=== PATIENT | male | born 1955 | race Caucasian/White ===

== ENCOUNTER 2018-07-16 20:08 | Observation (INO) | payer MEDICARE, MEDICAID ==
[~2018-07-16] VITALS: Ht 190.5 cm; Wt 106.9 kg
[2018-07-16 21:43] LABS: BASOPHILS # (AUTO) 0.07 x10^3/uL (0-0.1); BASOPHILS % (AUTO) 1 % (0-1); EOSINOPHILS # (AUTO) 0.18 x10^3/uL (0-0.4); EOSINOPHILS % (AUTO) 3 % (1-7); LYMPHOCYTES # (AUTO) 2.43 x10^3/uL (1-3.4); LYMPHOCYTES % (AUTO) 40 % (22-44); MD NO; MEAN CORPUSCULAR HGB CONC 33.9 g/dL (33.2-36.2); MEAN CORPUSCULAR VOLUME 97.4 fL (81-97); MEAN PLATELET VOLUME 7.3 fL (7.4-10.4); MONOCYTES # (AUTO) 0.45 x10^3/uL (0.2-0.8); MONOCYTES % (AUTO) 7 % (2-9); NEUTROPHILS % (AUTO) 49 % (42-75); PLATELET COUNT 331 x10^3/uL (130-400); RED BLOOD COUNT 4.66 x10^6/uL (4.38-5.82); RED CELL DISTRIBUTION WIDTH 16.4 % (9.4-14.8)
[2018-07-16 21:55] LABS: ALANINE AMINOTRANSFERASE 30 U/L (12-78); ALBUMIN 3.2 g/dL (3.4-5.0); ANION GAP 6 mmol/L (5-15); CALCIUM 7.7 mg/dL (8.5-10.1); CHLORIDE 110 mmol/L (98-107)
[2018-07-16 21:56] LABS: SALICYLATE LEVEL < 1.7 mg/dL (2.8-20.0)
[2018-07-16 21:57] LABS: ALKALINE PHOSPHATASE 76 U/L (45-117); BILIRUBIN,TOTAL 0.2 mg/dL (0.2-1.0); CREATININE 0.74 mg/dL (0.7-1.3); TOTAL PROTEIN 6.4 g/dL (6.4-8.2)
[2018-07-16 22:03] LABS: ACETAMINOPHEN < 2 mcg/mL (10-30)
[2018-07-17 05:38] LABS: AMPHETAMINE SCREEN, URINE Negative (Negative); BARBITURATE SCREEN, URINE Negative (Negative); BENZODIAZEPINE SCREEN, URINE Negative (Negative); CANNABINOID SCREEN, URINE Negative (Negative); COCAINE SCREEN, URINE Negative (Negative); METHADONE SCREEN, URINE Negative (Negative); OPIATE SCREEN, URINE Negative (Negative)
[2018-07-17] MEDS ORDERED: FOLIC ACID 1 MG TABLET PO ONE (09:00)
[2018-07-17] MEDS ORDERED: LORazepam 2 MG/ML, 1ML IVPush ONE (11:00)
[2018-07-17] MEDS ORDERED: LORazepam 2 MG/ML, 1ML IV PRN ×5 (11:30)
[2018-07-17] MEDS ORDERED: ONDANSETRON 2MG/ML, 2ML IVPush PRN (11:30)
[2018-07-17] MEDS ORDERED: ONDANSETRON ODT 4 MG PO PRN (11:30)
[2018-07-17] MEDS ORDERED: LORazepam 0.5MG TABLET PO PRN (11:30)
[2018-07-17] MEDS ORDERED: LORazepam 1MG TABLET PO PRN ×4 (11:30)
[2018-07-17] MEDS ORDERED: ACETAMINOPHEN 325 MG TABLET PO PRN (11:30)
[2018-07-17] MEDS ORDERED: KETOROLAC 30 MG/1 ML IV PRN (11:30)
[2018-07-17] MEDS: SENNA/DOCUSATE TABLET PO SCH (11:30)
[2018-07-17] MEDS ORDERED: THIAMINE 200 MG in DEXTROSE 5% 50 ML IVPB ONE (11:30)
[2018-07-17] MEDS ORDERED: LORazepam 1MG TABLET ONE (11:47)
[2018-07-17] MEDS: MULTIVITAMINS/MINERALS TABLET PO SCH (14:14)
[2018-07-17] MEDS ORDERED: BUPR-86 PO (16:18)
[2018-07-17 16:19] VITALS: BP 122/78
[2018-07-17 19:20] VITALS: BP 111/75
[2018-07-17] MEDS ORDERED: DIPHENHYDRAMINE 50 MG CAPSULE PO PRN (23:00)
[2018-07-18 02:31] VITALS: BP 101/64
[2018-07-18] MEDS ORDERED: ASPIRIN 325 MG TABLET PO SCH (06:00)
[2018-07-18 07:12] VITALS: BP 120/78
[2018-07-18] MEDS: SENNA/DOCUSATE TABLET PO SCH (08:41)
[2018-07-18] MEDS: MULTIVITAMINS/MINERALS TABLET PO SCH (08:41)
[2018-07-18] MEDS ORDERED: BUPROPION SR 150 MG TABLET PO SCH (09:00)
[2018-07-18] MEDS ORDERED: BUPR150T73 PO (12:17)
[2018-07-18] MEDS ORDERED: HYDR25TA11 PO (12:17)
[2018-07-18] MEDS ORDERED: MULT-484 PO (12:17)
[2018-07-18] MEDS ORDERED: TRAZ-136 PO (12:17)
[2018-07-18] MEDS ORDERED: ASPI325T17 PO (12:17)
[2018-07-18] MEDS ORDERED: ACET325T14 PO (12:17)
== END 2018-07-18 13:47 ==
LOC: ED 07-17 08:49 → EDIP 07-17 10:52 → 4WST 07-17 15:44
PROVIDERS: ADMIT Hospitalist; ATTEND Hospitalist
DX: R45.851 Suicidal ideations (principal); F33.2 Major depressive disorder, recurrent severe without psychotic features; F10.229 Alcohol dependence with intoxication, unspecified; F41.9 Anxiety disorder, unspecified; Z59.0 Homelessness; Z91.5 Personal history of self-harm; I48.91 Unspecified atrial fibrillation
CPT/HCPCS: 36415; 80053; 80307; 80329; 85025; 93005; 96365; 96375; 99285; G0378; J2060; J3411; Q0177; G0480

== ENCOUNTER 2018-07-18 12:30 | Inpatient (IN) | payer MEDICARE, MEDICAID ==
[~2018-07-18] VITALS: Ht 190.5 cm; Wt 105.5 kg
[~2018-07-18 12:30] MED LIST: ACET325T14 PO; ASPI325T17 PO; BUPR-86 PO; BUPR150T73 PO; HYDR25TA11 PO; MULT-484 PO; TRAZ-136 PO
[2018-07-18] MEDS ORDERED: DOCUSATE 100 MG CAPSULE PO PRN (14:30)
[2018-07-18] MEDS ORDERED: DIPHENHYDRAMINE 50 MG CAPSULE PO PRN (14:30)
[2018-07-18] MEDS ORDERED: ONDANSETRON ODT 4 MG PO PRN (14:30)
[2018-07-18] MEDS ORDERED: BISACODYL 10 MG SUPP PR PRN (14:30)
[2018-07-18] MEDS ORDERED: ACETAMINOPHEN 325 MG TABLET PO PRN (14:30)
[2018-07-18] MEDS ORDERED: POLYETHYLENE GLYCOL 17 GM PACKET PO PRN (14:30)
[2018-07-18] MEDS ORDERED: HYDROXYZINE PAMOATE 50MG CAP PO PRN (15:00)
[2018-07-18] MEDS ORDERED: PLEASE ENTER HEIGHT AND WEIGHT MC SCH (15:00)
[2018-07-18] MEDS: LORazepam 1MG TABLET PO PRN (15:12)
[2018-07-18 16:19] VITALS: BP 143/97
[2018-07-18 19:37] VITALS: BP 100/60
[2018-07-18 19:47] LABS: MICROSCOPIC NOT IND
[2018-07-18 19:52] LABS: CULTURE INDICATED? NO
[2018-07-18] MEDS ORDERED: TRAZODONE 100MG TABLET PO ONE (21:00)
[2018-07-19 06:29] LABS: CHOL/HDL RATIO 2.2; FOLATE LEVEL 15.8 ng/mL (3.1-17.5); FREE T4 (FREE THYROXINE) 0.93 ng/dL (0.76-1.46); LDL/HDL RATIO 0.9 (0.5-3.0); THYROID STIMULATING HORMONE 0.53 mIU/L (0.358-3.740)
[2018-07-19 08:07] VITALS: BP 105/70
[2018-07-19] MEDS: ASPIRIN 81 MG TABLET EC PO SCH (08:28)
[2018-07-19] MEDS: LORazepam 1MG TABLET PO PRN ×2 (08:28→21:05)
[2018-07-19] MEDS: FOLIC ACID 1 MG TABLET PO SCH (08:28)
[2018-07-19] MEDS: THIAMINE 100MG TABLET PO SCH (08:28)
[2018-07-19] MEDS: MULTIVITAMINS WITH IRON TABLET PO SCH (08:28)
[2018-07-19] MEDS: BUPROPION SR 150 MG TABLET PO SCH (08:28)
[2018-07-19 19:52] VITALS: BP 102/70
[2018-07-19] MEDS ORDERED: DOXEPIN 25 MG CAPSULE PO SCH (21:00)
[2018-07-20 07:55] VITALS: BP 124/85
[2018-07-20] MEDS: FOLIC ACID 1 MG TABLET PO SCH (08:49)
[2018-07-20] MEDS: THIAMINE 100MG TABLET PO SCH (08:49)
[2018-07-20] MEDS: LORazepam 1MG TABLET PO PRN (08:49)
[2018-07-20] MEDS: BUPROPION SR 150 MG TABLET PO SCH (08:49)
[2018-07-20] MEDS: ASPIRIN 81 MG TABLET EC PO SCH (08:50)
[2018-07-20] MEDS: MULTIVITAMINS WITH IRON TABLET PO SCH (08:50)
== END 2018-07-20 14:30 | disposition home or self-care (01) | DRG 885 ==
LOC: 3E 13:53
PROVIDERS: ADMIT Psychiatry & Neurology Psychosomatic Medicine; ATTEND Psychiatry & Neurology Psychosomatic Medicine
DX: F33.2 Major depressive disorder, recurrent severe without psychotic features (principal); R45.851 Suicidal ideations; F10.129 Alcohol abuse with intoxication, unspecified; I48.0 Paroxysmal atrial fibrillation; F41.9 Anxiety disorder, unspecified; G47.00 Insomnia, unspecified; Z91.5 Personal history of self-harm; Z82.0 Family history of epilepsy and other diseases of the nervous system; Y90.9 Presence of alcohol in blood, level not specified
CPT/HCPCS: 36415; 80061; 81003; 82140; 82607; 82746; 84439; 84443; 86592; 92523-GN

== ENCOUNTER 2018-10-20 09:41 | Emergency (ER) | payer MEDICARE, MEDICAID ==
[~2018-10-20] VITALS: Ht 188 cm; Wt 113.4 kg
[~2018-10-20 09:41] MED LIST changes: -TRAZ-136 PO; +TRAZ50TA66 PO
[2018-10-20 09:43] VITALS: BP 103/69
--- NOTE | 2018-10-20 09:59 | NUR ---
Patient safe in gurney, shutters lowered, personal belongings bagged and documented, ANITA Clark at bedside now for assessment. Patient states he "just don't want to feel like this anymore" he states he has had previous SA via "leaving the car running in the garage, and another time taking a bunch of pils." Patient states that he does not own a gun, has considered buying one now for a suicide attempt. He states he had "about 3 beers this morning to try to help me calm down, but that didn't work." At this time patient's urine sample sent to lab, Breathalyzer by [facility]. patient denies additional needs, blankets provided, NADN, safety maintained.
[2018-10-20 10:18] LABS: BASOPHILS # (AUTO) 0.07 x10^3/uL (0-0.1); BASOPHILS % (AUTO) 1 % (0-1); EOSINOPHILS # (AUTO) 0.04 x10^3/uL (0-0.4); EOSINOPHILS % (AUTO) 1 % (1-7); LYMPHOCYTES # (AUTO) 1.62 x10^3/uL (1-3.4); LYMPHOCYTES % (AUTO) 18 % (22-44); MD NO; MEAN CORPUSCULAR HEMOGLOBIN 32.7 pg (27.5-34.5); MEAN CORPUSCULAR HGB CONC 34.3 g/dL (33.2-36.2); MEAN CORPUSCULAR VOLUME 95.3 fL (81-97); MEAN PLATELET VOLUME 7.8 fL (7.4-10.4); MONOCYTES # (AUTO) 0.52 x10^3/uL (0.2-0.8); MONOCYTES % (AUTO) 6 % (2-9); NEUTROPHILS # (AUTO) 6.52 x10^3/uL (1.8-6.8); NEUTROPHILS % (AUTO) 74 % (42-75); PLATELET COUNT 317 x10^3/uL (130-400); RED BLOOD COUNT 4.76 x10^6/uL (4.38-5.82); RED CELL DISTRIBUTION WIDTH 14.6 % (9.4-14.8)
[2018-10-20 10:36] LABS: ALBUMIN 3.5 g/dL (3.4-5.0); CALCIUM 7.9 mg/dL (8.5-10.1); CHLORIDE 103 mmol/L (98-107)
[2018-10-20 10:40] LABS: ACETAMINOPHEN < 2 mcg/mL (10-30); ANION GAP 10 mmol/L (5-15); CREATININE 0.89 mg/dL (0.7-1.3); SALICYLATE LEVEL < 1.7 mg/dL (2.8-20.0)
[2018-10-20 10:45] LABS: AMPHETAMINE SCREEN, URINE Negative (Negative); BARBITURATE SCREEN, URINE Negative (Negative); BENZODIAZEPINE SCREEN, URINE Negative (Negative); CANNABINOID SCREEN, URINE Negative (Negative); COCAINE SCREEN, URINE Negative (Negative); METHADONE SCREEN, URINE Negative (Negative); OPIATE SCREEN, URINE Negative (Negative)
[2018-10-20] MEDS ORDERED: LORazepam 1MG TABLET ONE (13:32)
--- NOTE | 2018-10-20 13:53 | NUR ---
patient has requested "something to help me calm down" 1 mg PO ativan ordered by Khadra and administered by this RN. Report given to Floor RN, patient updated of transfer plan and RTG. Safety maintained, sitter outside room continuously
--- NOTE | 2018-10-20 13:53 | NUR ---
Called Luis for SBAR report, pt will transported by ER staff to unit room 262
[2018-10-20] MEDS ORDERED: LORazepam 1MG TABLET PO ONE (14:00)
--- NOTE | 2018-10-20 16:20 | NUR ---
TASK RN: TO BE ADMIT TO 3E. REPORT TO CYNDI ASKEW
== END 2018-10-20 16:39 ==
LOC: ED 11:52
DX: F33.0 Major depressive disorder, recurrent, mild (principal); F10.120 Alcohol abuse with intoxication, uncomplicated; Z72.9 Problem related to lifestyle, unspecified
CPT/HCPCS: 36415; 80048; 80307; 80329; 82040; 85025; 99285; G0480

== ENCOUNTER 2019-04-28 09:14 | Inpatient (IN) | payer MEDICARE, MEDICAID ==
[~2019-04-28] VITALS: Ht 190.5 cm; Wt 113.3 kg
[2019-05-05 07:08] VITALS: BP 95/60
== END 2019-05-05 09:53 | disposition home or self-care (01) | DRG 885 ==
LOC: 3E 09:14
PROVIDERS: ADMIT Psychiatry & Neurology Psychosomatic Medicine; ATTEND Psychiatry & Neurology Psychosomatic Medicine
DX: F33.2 Major depressive disorder, recurrent severe without psychotic features (principal); R45.851 Suicidal ideations; I10 Essential (primary) hypertension; I25.10 Atherosclerotic heart disease of native coronary artery without angina pectoris; G47.00 Insomnia, unspecified; F10.21 Alcohol dependence, in remission; F41.9 Anxiety disorder, unspecified; Z79.899 Other long term (current) drug therapy
CPT/HCPCS: 36415; 71045; 80048; 80061; 81001; 82140; 82607; 84436; 84443; 85025; 85651; 93005

== ENCOUNTER 2019-05-19 06:04 | Emergency (ER) | payer MEDICARE, MEDICAID ==
[~2019-05-19] VITALS: Ht 190.5 cm; Wt 115.1 kg
[2019-05-19 06:35] VITALS: BP 105/81
== END 2019-05-19 13:35 | disposition home or self-care (01) ==
LOC: ED 07:28
DX: F32.1 Major depressive disorder, single episode, moderate (principal); F10.220 Alcohol dependence with intoxication, uncomplicated; Z72.9 Problem related to lifestyle, unspecified; Y90.9 Presence of alcohol in blood, level not specified
CPT/HCPCS: 36415; 80048; 80307; 82040; 85025; 99284; Q0177; 99283

== ENCOUNTER 2020-01-05 11:32 | Emergency (ER) | payer MEDICARE, MEDICAID ==
[~2020-01-05] VITALS: Ht 190.5 cm; Wt 121.4 kg
[~2020-01-05 11:32] MED LIST changes: +AMLO-150 PO; +CARV12.5 PO; +DOXE100C PO; +DULO30CA2 PO; +FLUO20CA23 PO; +HYDR-826 PO; -HYDR25TA11 PO; +LOSA100T14 PO; +MULT1TAB60 PO; +QUET25TA7 PO; +TRAZ-175 PO
[2020-01-05] MEDS ORDERED: HYDROcodone/APAP 5/325 TABLET ONE (11:59)
[2020-01-05] MEDS ORDERED: METHOCARBAMOL 750 MG TABLET ONE (11:59)
[2020-01-05] MEDS ORDERED: METHOCARBAMOL 750 MG TABLET PO ONE (12:00)
[2020-01-05] MEDS ORDERED: HYDROcodone/APAP 5/325 TABLET PO ONE (12:00)
[2020-01-05 12:04] VITALS: BP 116/72
--- NOTE | 2020-01-05 12:05 | NUR ---
PT KATALINA TV. MEDICATED PER MAR
--- NOTE | 2020-01-05 13:07 | NUR ---
PT TO CT AT THIS TIME
== END 2020-01-05 13:39 | disposition home or self-care (01) ==
LOC: ED 11:55
DX: S39.012A Strain of muscle, fascia and tendon of lower back, initial encounter (principal); M47.816 Spondylosis without myelopathy or radiculopathy, lumbar region; X58.XXXA Exposure to other specified factors, initial encounter; Y93.89 Activity, other specified; Y92.89 Other specified places as the place of occurrence of the external cause; Y99.8 Other external cause status
CPT/HCPCS: 72131; 99284

== ENCOUNTER 2020-01-16 08:05 | Emergency (ER) | payer MEDICARE, MEDICAID ==
[~2020-01-16] VITALS: Ht 188 cm; Wt 86.0 kg
[2020-01-16 08:10] VITALS: BP 123/80
--- NOTE | 2020-01-16 08:30 | NUR ---
PT VALENTIN HAN, PT WITH SI, STATES HE PLANS TO SHOOT HIMSELF IN THE HEAD WITH A GUN. PER EMS REPORT PT DOES NOT HAVE ACCESS TO GUN AT THIS TIME, ALTHOUGH PT STATES HE DOES. PT WITH HX OF DEPRESSION AND PRIOR SA/SI PER EMS AND PT REPORT. PT TO SECURE RM AT THIS TIME, ALL BELONGINGS REMOVED, PLACED IN 2 PT BELONGINGS BAGS AND TO SECURE LOCKER LABELED. PT PROVIDED WITH BLANKET. AWAITING ERMD EVAL
[2020-01-16 09:03] LABS: BASOPHILS # (AUTO) 0.04 x10^3/uL (0-0.1); BASOPHILS % (AUTO) 1 % (0-1); EOSINOPHILS # (AUTO) 0.44 x10^3/uL (0-0.4); EOSINOPHILS % (AUTO) 5 % (1-7); LYMPHOCYTES # (AUTO) 1.83 x10^3/uL (1-3.4); LYMPHOCYTES % (AUTO) 22 % (22-44); MD NO; MEAN CORPUSCULAR HEMOGLOBIN 32.2 pg (27.5-34.5); MEAN CORPUSCULAR VOLUME 94.7 fL (81-97); MEAN PLATELET VOLUME 7.5 fL (7.4-10.4); MONOCYTES % (AUTO) 10 % (2-9); NEUTROPHILS # (AUTO) 5.09 x10^3/uL (1.8-6.8); NEUTROPHILS % (AUTO) 62 % (42-75); PLATELET COUNT 351 x10^3/uL (130-400); RED BLOOD COUNT 4.86 x10^6/uL (4.38-5.82)
[2020-01-16 09:12] LABS: ALANINE AMINOTRANSFERASE 44 U/L (12-78); ALBUMIN 3.3 g/dL (3.4-5.0); ANION GAP 7 mmol/L (5-15); CALCIUM 8.4 mg/dL (8.5-10.1); CHLORIDE 107 mmol/L (98-107); CREATININE 0.75 mg/dL (0.7-1.3)
[2020-01-16 09:14] LABS: ALKALINE PHOSPHATASE 99 U/L (45-117); BILIRUBIN,TOTAL 0.2 mg/dL (0.2-1.0); TOTAL PROTEIN 7.2 g/dL (6.4-8.2)
[2020-01-16 09:16] LABS: SALICYLATE LEVEL < 1.7 mg/dL (2.8-20.0)
--- NOTE | 2020-01-16 09:39 | NUR ---
UDS COLLECTED AND SENT TO LAB, MEAL TRAY ORDERED FOR PT. NO OTHER NEEDS AT THIS TIME
[2020-01-16 10:33] LABS: AMPHETAMINE SCREEN, URINE Negative (Negative); BARBITURATE SCREEN, URINE Negative (Negative); BENZODIAZEPINE SCREEN, URINE Negative (Negative); CANNABINOID SCREEN, URINE Negative (Negative); COCAINE SCREEN, URINE Negative (Negative); METHADONE SCREEN, URINE Negative (Negative); OPIATE SCREEN, URINE Negative (Negative)
--- NOTE | 2020-01-16 13:10 | NUR ---
REPORT RECEIEVED FROM ADAM HANNA. PT RESTING IN BED, SITTER AT BEDSIDE. PT STATES STATES HE IS FEELING ANXIOUS, WILL LET ERMD KNOW. NEEDS ADDRESSED, CONT TO MONITOR.
--- NOTE | 2020-01-16 14:17 | NUR ---
PROCUREMENT PROFESSIONAL AT BEDSIDE FOR ASSESSMENT.
--- NOTE | 2020-01-16 15:24 | NUR ---
TASK RN, FIRST CONTACT WITH PT. Patient given discharge instructions and they have confirmed that they understand the instructions. Patient ambulatory with steady gait. Pt left with d/c paperwork, Rx, and all personal belongings bags (2 of 2). Pt declined taxi voucher or bus pass. No needs expressed.
== END 2020-01-16 15:26 | disposition home or self-care (01) ==
LOC: ED 08:13
DX: R45.851 Suicidal ideations (principal); F32.9 Major depressive disorder, single episode, unspecified; F10.129 Alcohol abuse with intoxication, unspecified; Y90.0 Blood alcohol level of less than 20 mg/100 ml
CPT/HCPCS: 36415; 80053; 80307; 85025; 99284

== ENCOUNTER 2020-04-18 12:04 | Inpatient (IN) | payer MEDICARE, MEDICAID ==
[~2020-04-18] VITALS: Ht 190.5 cm; Wt 112.6 kg
[~2020-04-18 12:04] MED LIST changes: +MULT-449 PO; -MULT1TAB60 PO
[2020-04-18 13:15] VITALS: BP 107/73
[2020-04-18 14:37] VITALS: BP 107/73
[2020-04-18] MEDS ORDERED: ONDANSETRON 2MG/ML, 2ML IVPush PRN (16:00)
[2020-04-18] MEDS ORDERED: BISACODYL 10 MG SUPP PR PRN (16:00)
[2020-04-18] MEDS ORDERED: ONDANSETRON ODT 4 MG PO PRN (16:00)
[2020-04-18] MEDS ORDERED: GABAPENTIN 300 MG CAPSULE PO PRN (16:00)
[2020-04-18] MEDS ORDERED: DOCUSATE 100 MG CAPSULE PO PRN (16:00)
[2020-04-18] MEDS ORDERED: ACETAMINOPHEN 325 MG TABLET PO PRN (16:00)
[2020-04-18] MEDS ORDERED: IBUPROFEN 600 MG TABLET PO PRN (16:00)
[2020-04-18] MEDS ORDERED: POLYETHYLENE GLYCOL 17 GM PACKET PO PRN (16:00)
[2020-04-18 16:27] LABS: BASOPHILS # (AUTO) 0.01 x10^3/uL (0-0.1); BASOPHILS % (AUTO) 0 % (0-1); EOSINOPHILS % (AUTO) 0 % (1-7); LYMPHOCYTES # (AUTO) 0.78 x10^3/uL (1-3.4); LYMPHOCYTES % (AUTO) 20 % (22-44); MD NO; MEAN CORPUSCULAR HGB CONC 33.1 g/dL (33.2-36.2); MEAN CORPUSCULAR VOLUME 96.7 fL (81-97); MEAN PLATELET VOLUME 8.3 fL (7.4-10.4); MONOCYTES # (AUTO) 0.56 x10^3/uL (0.2-0.8); MONOCYTES % (AUTO) 15 % (2-9); NEUTROPHILS # (AUTO) 2.46 x10^3/uL (1.8-6.8); NEUTROPHILS % (AUTO) 65 % (42-75); PLATELET COUNT 179 x10^3/uL (130-400); RED BLOOD COUNT 5.08 x10^6/uL (4.38-5.82); RED CELL DISTRIBUTION WIDTH 15.6 % (9.4-14.8)
[2020-04-18 16:37] LABS: ANION GAP 6 mmol/L (5-15); CHLORIDE 98 mmol/L (98-107); CREATININE 1.22 mg/dL (0.7-1.3)
[2020-04-18 19:20] VITALS: BP 100/50
[2020-04-19 07:05] LABS: CHOL/HDL RATIO 2.5; LDL/HDL RATIO 1.1 (0.5-3.0)
[2020-04-19 07:48] VITALS: BP 112/73
[2020-04-19 09:01] LABS: ANION GAP 7 mmol/L (5-15); CALCIUM 8.4 mg/dL (8.5-10.1); CHLORIDE 102 mmol/L (98-107); CREATININE 0.92 mg/dL (0.7-1.3)
[2020-04-19] MEDS: DULOXETINE 30 MG CAPSULE.DR PO SCH (15:45)
[2020-04-19 19:45] VITALS: BP 103/71
[2020-04-19] MEDS: LORazepam 1MG TABLET PO PRN (19:49)
[2020-04-19] MEDS: DOXEPIN 25 MG CAPSULE PO SCH (19:49)
[2020-04-20 07:41] VITALS: BP 109/68
[2020-04-20] MEDS: DULOXETINE 30 MG CAPSULE.DR PO SCH (08:33)
[2020-04-20 19:05] VITALS: BP 113/73
[2020-04-20] MEDS: DOXEPIN 25 MG CAPSULE PO SCH (20:05)
[2020-04-20] MEDS: LORazepam 1MG TABLET PO PRN (20:05)
[2020-04-21 07:40] VITALS: BP 94/58
[2020-04-21] MEDS: DULOXETINE 30 MG CAPSULE.DR PO SCH (08:52)
[2020-04-21] MEDS: LORazepam 1MG TABLET PO PRN ×2 (08:58→20:12)
[2020-04-21 19:08] VITALS: BP 116/77
[2020-04-21] MEDS: DOXEPIN 25 MG CAPSULE PO SCH (20:12)
[2020-04-22 07:46] VITALS: BP 108/65
[2020-04-22] MEDS: DULOXETINE 30 MG CAPSULE.DR PO SCH (08:10)
[2020-04-22 19:42] VITALS: BP 110/74
[2020-04-22] MEDS: DOXEPIN 25 MG CAPSULE PO SCH (20:05)
[2020-04-22] MEDS: LORazepam 1MG TABLET PO PRN (20:10)
[2020-04-23 07:00] VITALS: BP 111/78
[2020-04-23] MEDS: DULOXETINE 30 MG CAPSULE.DR PO SCH (07:58)
[2020-04-23 19:16] VITALS: BP 124/80
[2020-04-23] MEDS: LORazepam 1MG TABLET PO PRN (19:33)
[2020-04-23] MEDS: DOXEPIN 25 MG CAPSULE PO SCH (20:40)
[2020-04-24 07:46] VITALS: BP 108/74
[2020-04-24] MEDS: DULOXETINE 30 MG CAPSULE.DR PO SCH (08:49)
[2020-04-24 19:18] VITALS: BP 105/67
[2020-04-24] MEDS: DOXEPIN 25 MG CAPSULE PO SCH (20:24)
[2020-04-24] MEDS: LORazepam 1MG TABLET PO PRN (20:24)
[2020-04-25 07:30] VITALS: BP 95/67
[2020-04-25] MEDS: DULOXETINE 30 MG CAPSULE.DR PO SCH (08:35)
[2020-04-25 19:26] VITALS: BP 100/66
[2020-04-25] MEDS: LORazepam 1MG TABLET PO PRN (20:14)
[2020-04-25] MEDS: DOXEPIN 25 MG CAPSULE PO SCH (20:14)
[2020-04-26 07:32] VITALS: BP 102/71
[2020-04-26] MEDS: DULOXETINE 30 MG CAPSULE.DR PO SCH (09:05)
[2020-04-26 19:03] VITALS: BP 93/61
[2020-04-26] MEDS: DOXEPIN 100 MG CAPSULE PO SCH (20:24)
[2020-04-26] MEDS: LORazepam 1MG TABLET PO PRN (20:36)
[2020-04-27 07:34] VITALS: BP 102/69
[2020-04-27] MEDS: DULOXETINE 30 MG CAPSULE.DR PO SCH (09:00)
[2020-04-27] MEDS: LORazepam 1MG TABLET PO PRN (09:10)
[2020-04-27 19:51] VITALS: BP 93/59
[2020-04-27] MEDS: DOXEPIN 100 MG CAPSULE PO SCH (20:56)
[2020-04-27 21:00] VITALS: BP 102/71
[2020-04-28 07:34] VITALS: BP 103/68
[2020-04-28] MEDS: DULOXETINE 30 MG CAPSULE.DR PO SCH (08:14)
[2020-04-28] MEDS: LORazepam 1MG TABLET PO PRN (08:54)
[2020-04-28 20:03] VITALS: BP 93/63
[2020-04-28] MEDS: DOXEPIN 100 MG CAPSULE PO SCH (20:51)
[2020-04-29 07:17] VITALS: BP 90/58
[2020-04-29] MEDS: DULOXETINE 30 MG CAPSULE.DR PO SCH (08:22)
[2020-04-29] MEDS ORDERED: DOXE100C PO (14:48)
[2020-04-29] MEDS ORDERED: DULO30CA2 PO (14:48)
[2020-04-29] MEDS ORDERED: GABA300C PO (14:48)
[2020-04-29 19:05] VITALS: BP 94/59
[2020-04-29 20:20] VITALS: BP 104/69
[2020-04-29] MEDS: DOXEPIN 100 MG CAPSULE PO SCH (20:41)
[2020-04-29] MEDS: LORazepam 1MG TABLET PO PRN (20:41)
[2020-04-30 06:32] VITALS: BP 99/62
[2020-04-30] MEDS: DULOXETINE 30 MG CAPSULE.DR PO SCH (08:15)
== END 2020-04-30 09:20 | disposition home or self-care (01) | DRG 885 ==
LOC: 3E 14:24
PROVIDERS: ADMIT Psychiatry & Neurology Psychosomatic Medicine; ATTEND Psychiatry & Neurology Psychosomatic Medicine
DX: F33.2 Major depressive disorder, recurrent severe without psychotic features (principal); E87.1 Hypo-osmolality and hyponatremia; E87.2 Acidosis; R45.851 Suicidal ideations; F10.10 Alcohol abuse, uncomplicated; F41.9 Anxiety disorder, unspecified; G47.00 Insomnia, unspecified; G89.29 Other chronic pain; I10 Essential (primary) hypertension; Z79.899 Other long term (current) drug therapy; Z82.49 Family history of ischemic heart disease and other diseases of the circulatory system
CPT/HCPCS: 36415; 80048; 80061; 83930; 84443; 85025

== ENCOUNTER 2021-03-18 04:19 | Emergency (ER) | payer MEDICARE, MEDICAID ==
[~2021-03-18] VITALS: Ht 190.5 cm; Wt 120.0 kg
[~2021-03-18 04:19] MED LIST changes: +GABA300C PO
--- NOTE | 2021-03-18 04:46 | NUR ---
bib ems, pt picked up from [place]. pt states he was denied there and is having thoughts of harming himself by buying a gun and shooting himself. pt placed on hold by erp, pt's belongings placed in security locer, belongings list filled out and placed in chart. pt on q 15 min watch, provided juice, labs drawn. no other needs at this time
[2021-03-18 04:49] LABS: BASOPHILS % (AUTO) 1 % (0-1); EOSINOPHILS % (AUTO) 2 % (1-7); LYMPHOCYTES % (AUTO) 30 % (22-44); MEAN CORPUSCULAR HEMOGLOBIN 33.9 pg (27.5-34.5); MEAN CORPUSCULAR HGB CONC 35.2 g/dL (33.2-36.2); MEAN PLATELET VOLUME 7.4 fL (7.4-10.4); MONOCYTES % (AUTO) 9 % (2-9); NEUTROPHILS % (AUTO) 58 % (42-75); PLATELET COUNT 313 x10^3/uL (130-400); RED BLOOD COUNT 5.01 x10^6/uL (4.38-5.82); RED CELL DISTRIBUTION WIDTH 14.3 % (9.4-14.8)
[2021-03-18 05:02] LABS: ALANINE AMINOTRANSFERASE 26 U/L (12-78); ALBUMIN 3.8 g/dL (3.4-5.0); ANION GAP 8 mmol/L (5-15); CALCIUM 8.9 mg/dL (8.5-10.1); CHLORIDE 110 mmol/L (98-107); CREATININE 0.86 mg/dL (0.7-1.3)
[2021-03-18 05:04] LABS: ALKALINE PHOSPHATASE 93 U/L (45-117); SALICYLATE LEVEL < 1.7 mg/dL (2.8-20.0); TOTAL PROTEIN 7.5 g/dL (6.4-8.2)
--- NOTE | 2021-03-18 05:05 | NUR ---
pt states unable to urinate at this time, will attempt later
[2021-03-18] MEDS ORDERED: LORazepam 1MG TABLET ONE (05:56)
[2021-03-18] MEDS ORDERED: LORazepam 1MG TABLET PO ONE (06:00)
--- NOTE | 2021-03-18 06:38 | NUR ---
pt provided more water, obtained urine. no other needs at this time. q15 min check in place
[2021-03-18 07:00] LABS: AMPHETAMINE SCREEN, URINE Negative (Negative); BARBITURATE SCREEN, URINE Negative (Negative); BENZODIAZEPINE SCREEN, URINE Negative (Negative); CANNABINOID SCREEN, URINE Negative (Negative); COCAINE SCREEN, URINE Negative (Negative); METHADONE SCREEN, URINE Negative (Negative); OPIATE SCREEN, URINE Negative (Negative)
--- NOTE | 2021-03-18 07:00 | NUR ---
report of pt from blaine peraza and assuming care of pt at this time.
--- NOTE | 2021-03-18 08:07 | NUR ---
PT ASLEEP IN [facility] AT THIS TIME WITH NAD. EQUAL BILATERAL MOVEMENT OF CHEST NOTED. NO SITTER AT BS, BUT CLOTHES DRIER ASSEMBLER AWARE. THIS RN IS PERFORMING Q15 MINUTE PT CHECKS OR ABLE AT THIS TIME.
[2021-03-18 10:09] VITALS: BP 145/70
--- NOTE | 2021-03-18 11:33 | NUR ---
REPORT OF PT GIVEN TO CYNDI ANTONY. ALL QUESTIONS ANSWERED.
== END 2021-03-18 13:40 | disposition admitted as inpatient to this hospital (09) ==
LOC: ED 08:32
DX: R45.851 Suicidal ideations (principal); Z20.822 Contact with and (suspected) exposure to COVID-19; F32.1 Major depressive disorder, single episode, moderate
CPT/HCPCS: 36415; 80053; 80299; 80307; 80320; 80329; 85025; 87426; 99285; G0480

== ENCOUNTER 2021-03-18 12:04 | Inpatient (IN) | payer MEDICARE, MEDICAID ==
[~2021-03-18] VITALS: Ht 190.5 cm; Wt 116.9 kg
[2021-03-18] MEDS ORDERED: POLYETHYLENE GLYCOL 17 GM PACKET PO PRN (12:30)
[2021-03-18] MEDS ORDERED: BISACODYL 10 MG SUPP PR PRN (12:30)
[2021-03-18] MEDS ORDERED: ONDANSETRON ODT 4 MG PO PRN (12:30)
[2021-03-18] MEDS ORDERED: DOCUSATE 100 MG CAPSULE PO PRN (12:30)
[2021-03-18] MEDS ORDERED: ACETAMINOPHEN 325 MG TABLET PO PRN (12:30)
[2021-03-18 12:34] VITALS: BP 126/74
[2021-03-18 19:42] VITALS: BP 119/72
[2021-03-18] MEDS ORDERED: DOXEPIN 100 MG CAPSULE ONE (20:29)
[2021-03-18] MEDS: DOXEPIN 100 MG CAPSULE PO SCH (20:40)
[2021-03-19 06:07] LABS: CHOL/HDL RATIO 2.3; FREE T4 (FREE THYROXINE) 0.97 ng/dL (0.76-1.46); LDL/HDL RATIO 0.9 (0.5-3.0)
[2021-03-19 07:52] VITALS: BP 120/82
[2021-03-19] MEDS: VENLAFAXINE 75 MG CAP ER PO SCH (08:49)
[2021-03-19 09:15] LABS: MICROSCOPIC NOT IND
[2021-03-19 19:37] VITALS: BP 123/76
[2021-03-19] MEDS: DOXEPIN 100 MG CAPSULE PO SCH (20:31)
[2021-03-20 07:23] VITALS: BP 151/88
[2021-03-20] MEDS: VENLAFAXINE 75 MG CAP ER PO SCH (09:09)
[2021-03-20] MEDS: LORazepam 1MG TABLET PO PRN ×2 (09:14→15:20)
[2021-03-20 19:38] VITALS: BP 102/66
[2021-03-20] MEDS: DOXEPIN 100 MG CAPSULE PO SCH (20:08)
[2021-03-21 07:41] VITALS: BP 118/85
[2021-03-21] MEDS: VENLAFAXINE 75 MG CAP ER PO SCH (08:45)
[2021-03-21] MEDS: LORazepam 1MG TABLET PO PRN (08:45)
[2021-03-21 19:50] VITALS: BP 105/67
[2021-03-21] MEDS: DOXEPIN 100 MG CAPSULE PO SCH (20:44)
[2021-03-22 07:45] VITALS: BP 100/69
[2021-03-22] MEDS: VENLAFAXINE 75 MG CAP ER PO SCH (08:23)
[2021-03-22 20:07] VITALS: BP 90/63
[2021-03-22] MEDS: DOXEPIN 100 MG CAPSULE PO SCH (20:21)
[2021-03-23 07:56] VITALS: BP 111/76
[2021-03-23] MEDS: VENLAFAXINE 75 MG CAP ER PO SCH (08:43)
[2021-03-23] MEDS: LORazepam 1MG TABLET PO PRN (08:50)
[2021-03-23 19:27] VITALS: BP 98/65
[2021-03-23] MEDS: DOXEPIN 100 MG CAPSULE PO SCH (20:50)
[2021-03-24 07:46] VITALS: BP 106/74
[2021-03-24] MEDS: VENLAFAXINE 75 MG CAP ER PO SCH (08:42)
[2021-03-24] MEDS: LORazepam 1MG TABLET PO PRN (08:42)
[2021-03-24] MEDS: ALPRazolam 1MG TAB PO PRN (17:37)
[2021-03-24] MEDS: DOXEPIN 25 MG CAPSULE PO SCH (21:13)
[2021-03-25 07:47] VITALS: BP 102/69
[2021-03-25] MEDS: VENLAFAXINE 75 MG CAP ER PO SCH (08:15)
[2021-03-25] MEDS: ALPRazolam 1MG TAB PO PRN (08:34)
[2021-03-25] MEDS: DOXEPIN 25 MG CAPSULE PO SCH (20:34)
[2021-03-26] MEDS: VENLAFAXINE 75 MG CAP ER PO SCH (07:45)
[2021-03-26] MEDS: ALPRazolam 1MG TAB PO PRN (07:45)
[2021-03-26 07:51] VITALS: BP 110/74
[2021-03-26 19:36] VITALS: BP 89/55
[2021-03-26] MEDS: DOXEPIN 25 MG CAPSULE PO SCH (20:26)
[2021-03-27 07:15] VITALS: BP 102/68
[2021-03-27] MEDS: VENLAFAXINE 75 MG CAP ER PO SCH (08:56)
[2021-03-27] MEDS: ALPRazolam 1MG TAB PO PRN (08:59)
[2021-03-27 19:03] VITALS: BP 97/65
[2021-03-27] MEDS: DOXEPIN 25 MG CAPSULE PO SCH (21:39)
[2021-03-28 07:13] VITALS: BP 110/74
[2021-03-28] MEDS: VENLAFAXINE 75 MG CAP ER PO SCH (08:17)
[2021-03-28] MEDS: ALPRazolam 1MG TAB PO PRN (09:39)
[2021-03-28 19:05] VITALS: BP 108/62
[2021-03-28] MEDS: DOXEPIN 25 MG CAPSULE PO SCH (20:27)
[2021-03-29 07:06] VITALS: BP 114/79
[2021-03-29] MEDS: VENLAFAXINE 75 MG CAP ER PO SCH (08:35)
[2021-03-29] MEDS: ALPRazolam 1MG TAB PO PRN (08:57)
[2021-03-29 19:30] VITALS: BP 125/80
[2021-03-29] MEDS: DOXEPIN 25 MG CAPSULE PO SCH (20:29)
[2021-03-30 07:41] VITALS: BP 100/68
[2021-03-30] MEDS: VENLAFAXINE 75 MG CAP ER PO SCH (08:04)
[2021-03-30] MEDS: ALPRazolam 1MG TAB PO PRN (08:17)
[2021-03-30 19:26] VITALS: BP 89/57
[2021-03-30] MEDS: DOXEPIN 25 MG CAPSULE PO SCH (20:18)
[2021-03-31 07:29] VITALS: BP 107/72
[2021-03-31] MEDS: VENLAFAXINE 75 MG CAP ER PO SCH (08:25)
[2021-03-31] MEDS: ALPRazolam 1MG TAB PO PRN (08:25)
[2021-03-31 19:24] VITALS: BP 111/72
[2021-03-31] MEDS: DOXEPIN 25 MG CAPSULE PO SCH (20:25)
[2021-04-01 07:47] VITALS: BP 116/79
[2021-04-01] MEDS: VENLAFAXINE 75 MG CAP ER PO SCH (08:09)
[2021-04-01] MEDS: ALPRazolam 1MG TAB PO PRN (08:09)
[2021-04-01 19:38] VITALS: BP 110/72
[2021-04-01] MEDS: DOXEPIN 25 MG CAPSULE PO SCH (20:19)
[2021-04-02 07:37] VITALS: BP 112/76
[2021-04-02] MEDS: VENLAFAXINE 75 MG CAP ER PO SCH (08:40)
[2021-04-02] MEDS: ALPRazolam 1MG TAB PO PRN (08:40)
[2021-04-02 19:44] VITALS: BP 99/66
[2021-04-02] MEDS: DOXEPIN 25 MG CAPSULE PO SCH (20:13)
[2021-04-03 07:20] VITALS: BP 101/68
[2021-04-03] MEDS: VENLAFAXINE 75 MG CAP ER PO SCH (08:37)
[2021-04-03] MEDS: ALPRazolam 1MG TAB PO PRN (10:02)
[2021-04-03 19:41] VITALS: BP 105/60
[2021-04-03] MEDS: DOXEPIN 25 MG CAPSULE PO SCH (20:49)
[2021-04-04 07:10] VITALS: BP 109/75
[2021-04-04] MEDS: VENLAFAXINE 75 MG CAP ER PO SCH (08:50)
[2021-04-04] MEDS ORDERED: ALPRazolam 1MG TAB PO PRN (13:00)
[2021-04-04 19:54] VITALS: BP 100/64
[2021-04-04] MEDS: DOXEPIN 25 MG CAPSULE PO SCH (21:09)
[2021-04-05 07:29] VITALS: BP 112/76
[2021-04-05] MEDS: VENLAFAXINE 75 MG CAP ER PO SCH (08:46)
[2021-04-05 19:01] VITALS: BP 102/68
[2021-04-05] MEDS: DOXEPIN 25 MG CAPSULE PO SCH (20:56)
[2021-04-06 07:46] VITALS: BP 101/75
[2021-04-06] MEDS: VENLAFAXINE 75 MG CAP ER PO SCH (08:11)
[2021-04-06] MEDS ORDERED: CLON0.1T22 PO (11:56)
[2021-04-06] MEDS ORDERED: DOXE25CA PO (11:56)
[2021-04-06] MEDS ORDERED: VENL75CA6 PO (11:56)
[2021-04-06 19:38] VITALS: BP 105/80
[2021-04-06] MEDS: DOXEPIN 25 MG CAPSULE PO SCH (20:26)
[2021-04-07 07:36] VITALS: BP 117/80
[2021-04-07] MEDS: VENLAFAXINE 75 MG CAP ER PO SCH (08:04)
== END 2021-04-07 10:00 | disposition home or self-care (01) | DRG 885 ==
LOC: 3E 12:05
PROVIDERS: ADMIT Psychiatry & Neurology Psychosomatic Medicine; ATTEND Psychiatry & Neurology Psychosomatic Medicine
DX: F33.2 Major depressive disorder, recurrent severe without psychotic features (principal); R45.851 Suicidal ideations; F10.10 Alcohol abuse, uncomplicated; F41.1 Generalized anxiety disorder; G47.00 Insomnia, unspecified; I10 Essential (primary) hypertension; Z98.1 Arthrodesis status; Z91.5 Personal history of self-harm; Z91.14 Patient's other noncompliance with medication regimen; Z87.891 Personal history of nicotine dependence; Z80.3 Family history of malignant neoplasm of breast; Z80.0 Family history of malignant neoplasm of digestive organs; Z83.3 Family history of diabetes mellitus; Z59.0 Homelessness
CPT/HCPCS: 36415; 71045; 80061; 81003; 82140; 84439; 84443; 93005